=== PATIENT | male | born 1970 | race Caucasian/White ===

== ENCOUNTER → 2016-12-13 | Outpatient (CLI) | payer BC ==
[~2016-12-13] MED LIST: ATOR-24 PO; DICL-201 PO; DICL1GEL12; ESCI1TAB10 PO; TRAZ100T29 PO; ZOLP10TA PO
--- NOTE | 2016-12-13 15:23 | DIAGNOSTIC IMAGING REPORT ---
CERVICAL SPINE MRI HISTORY: Neck pain. HERNIATED NUCLEOUS PULPOSUS W/MYLOPATHY TECHNIQUE: Multiplanar multisequence MRI of the cervical spine was performed without the use of contrast. COMPARISON STUDY: Cervical spine MRI 12/31/2015. FINDINGS: Straightening of the cervical spine. Alignment remains intact. No fracture or subluxation. The visualized posterior fossa is unremarkable. Prevertebral soft tissues and the C1-C2 interval remains intact. Mild disc space narrowing and disc desiccation throughout the cervical spine. C2-C3: No significant central canal or neural foraminal narrowing. C3-C4: Large left sided disc osteophyte complex which abuts and deforms the left anterior cord. This remains unchanged. There are severe left-sided neural foraminal narrowing, unchanged. There is also a small broad-based posterior disc bulge, unchanged. C4-C5: No significant central canal or neural foraminal narrowing. C5-C6: Broad-based posterior disc protrusion which abuts and deforms the anterior cord. This remains unchanged compared to the prior study. Moderate right and mild left neural foraminal narrowing, unchanged. The thecal sac measures approximately 7 mm in AP diameter. C6-C7: There is a focal central disc protrusion which abuts and deforms the anterior cord. This is also similar to the prior study. Mild bilateral neural foraminal narrowing, unchanged. The thecal sac continues to measure 7 mm in AP diameter. C7-T1: No significant central canal or neural foraminal narrowing. IMPRESSION: 1. Overall, no significant change compared to the 2016 examination. 2. Disc protrusions at C3-C4, C5-C6, and C6-C7 with associated cord deformity as described above. Electronically signed by: Ronni Bae M.D. 12/13/2016 3:22 PM Dictated Date/Time: 12/13/2016 3:13 PM
== END | disposition home or self-care (01) ==
LOC: C.OPENMRI 14:11
PROVIDERS: ATTEND Orthopaedic Surgery Orthopaedic Surgery of the Spine
DX: M50.01 Cervical disc disorder with myelopathy, high cervical region (principal); M50.022 Cervical disc disorder at C5-C6 level with myelopathy; M50.023 Cervical disc disorder at C6-C7 level with myelopathy

== ENCOUNTER → 2017-03-15 | Outpatient (CLI) | payer BC ==
[2017-03-15 13:39] LABS: ALT/SGPT 39 U/L (12-78); AST/SGOT 17 U/L (15-37); BLOOD UREA NITROGEN 10 mg/dl (7-18); BUN/CREATININE RATIO 10.6 (10-20); CALCIUM 8.4 mg/dl (8.5-10.1); CARBON DIOXIDE 32 mmol/L (21-32); CHLORIDE 106 mmol/L (98-107); CREATININE 0.91 mg/dl (0.60-1.40); GLUCOSE 83 mg/dl (70-99); POTASSIUM 4.2 mmol/L (3.5-5.1); SODIUM 143 mmol/L (136-145)
[2017-03-15 13:44] LABS: ALB/GLOB RATIO 1.2 (0.9-2); ALKALINE PHOSPHATASE 62 U/L (45-117); CHOLESTEROL 266 mg/dl (0-200); CHOLESTEROL/HDL RATIO 6.7; HDL CHOLESTEROL 40 mg/dl; LDL CHOLESTEROL CALCULATED 195 mg/dl; TRIGLYCERIDES 156 mg/dl (0-150); VERY LOW DENSITY LIPOPROT CALC 31 mg/dl
--- NOTE | 2017-03-22 12:21 | CODING QUERY MEDICAL NECESSITY ---
SUPPORTING DIAGNOSIS NEEDED A supporting diagnosis is required for the test/procedure performed on this patient in order for us to be reimbursed by the patient's insurance. Please provide a supporting diagnosis for the following test/procedure listed below next to the test name along with your signature. *If there is no additional diagnosis for this patient that would support the following test/procedure please document that below next to the test/procedure. Test(s)/Procedure(s) that require a supporting diagnosis: * PSA DIAGNOSIS: Provider Signature: Date: Thank you Reyna Ortiz [employer] Information Management Once completed, please kindly fax back to [phone] For questions please call [phone]
== END | disposition home or self-care (01) ==
LOC: C.LAB 11:32
PROVIDERS: ATTEND Neuromusculoskeletal Medicine & OMM
DX: Z00.00 Encounter for general adult medical examination without abnormal findings (principal); E78.00 Pure hypercholesterolemia, unspecified; Z12.5 Encounter for screening for malignant neoplasm of prostate

== ENCOUNTER → 2017-03-24 | Outpatient (CLI) | payer BC ==
--- NOTE | 2017-03-24 12:35 | DIAGNOSTIC IMAGING REPORT ---
LUMBAR SPINE 5 VIEWS HISTORY: Pain SACROILIITIS COMPARISON: None. FINDINGS: There is no fracture. No subluxation. Moderate degenerative disc change throughout the entire lumbar region. Sacroiliac joints appear unremarkable. Findings of posterior laminectomy and fusion from L3 through L5. IMPRESSION: Moderate degenerative and postoperative change as described. No acute process. Electronically signed by: Michael Lebron M.D. 03/24/2017 12:34 PM Dictated Date/Time: 03/24/2017 12:32 PM
== END | disposition home or self-care (01) ==
LOC: C.RADPV 11:55
PROVIDERS: ATTEND Family Medicine
DX: M46.1 Sacroiliitis, not elsewhere classified (principal)

== ENCOUNTER → 2017-04-18 | Outpatient (CLI) | payer BC ==
--- NOTE | 2017-04-18 10:18 | DIAGNOSTIC IMAGING REPORT ---
MRI OF THE LUMBAR SPINE WITHOUT CONTRAST CLINICAL HISTORY: Lumbar back pain with left-sided radiculopathy. COMPARISON STUDY: Lumbar spine radiographs March 24, 2017. TECHNIQUE: Utilizing a 0.7 [place] open magnet and dedicated coil, multiplanar, multiecho imaging of the lumbar spine was performed without IV contrast. FINDINGS: For purposes of numbering on this exam, the L5-S1 disc space is assigned to axial image 23 of 25. Alignment of the lumbar spine is anatomic. Vertebral body heights are maintained. There is no suspicious marrow replacement. A T1 and T2 hypointense focus within the inferior aspect of the L4 vertebral body is likely benign. There are post surgical findings consistent with an L3 and L4 laminectomy. Postoperative appearance is within normal limits. Paravertebral soft tissues are unremarkable. L1-2: The central canal and neural foramen are patent. L2-3: There is disc bulge with ligamentous hypertrophy and facet arthrosis. There is mild narrowing of the central canal, lateral recesses and left neural foramen. L3-4: There is no residual central canal stenosis. The neural foramen are patent. There is minimal disc bulge. L4-5: There is minimal disc bulge. There is a tiny central disc protrusion. There is no residual central canal stenosis. There is mild narrowing of both neural foramen. L5-S1: There is disc bulge with a small superimposed central disc protrusion. There is facet arthrosis. There is mild narrowing of the central canal, lateral recesses as well as moderate narrowing of both neural foramen. IMPRESSION: 1. Status post L3-L4 laminectomy. 2. Mild central canal stenosis at L2-L3 and L5-S1, as described above. 3. Moderate bilateral neural foraminal stenosis at L5-S1. Electronically signed by: Bari Long M.D. 04/18/2017 10:16 AM Dictated Date/Time: 04/18/2017 10:06 AM
== END | disposition home or self-care (01) ==
LOC: C.OPENMRI 08:52
PROVIDERS: ATTEND Neuromusculoskeletal Medicine & OMM
DX: M48.07 Spinal stenosis, lumbosacral region (principal); M54.16 Radiculopathy, lumbar region

== ENCOUNTER → 2017-07-02 | Outpatient (CLI) | payer BC ==
[2017-07-02 11:26] LABS: URINE APPEARANCE CLEAR (CLEAR); URINE BILIRUBIN NEG (NEG); URINE COLOR YELLOW; URINE EPITHELIAL CELL AUTO 0-5 /lpf (0-5); URINE NITRITE NEG (NEG); URINE SPECIFIC GRAVITY 1.013 (1.000-1.030); UROBILINOGEN NEG (NEG); ZZUR CULT IF INDIC CLEAN CATCH NO
[2017-07-02 11:28] LABS: MANUAL MICROSCOPIC REQUIRED? NO; REVIEW REQ? NO
== END | disposition home or self-care (01) ==
LOC: C.LAB 10:18
PROVIDERS: ATTEND Neuromusculoskeletal Medicine & OMM
DX: N41.0 Acute prostatitis (principal); R30.0 Dysuria

== ENCOUNTER 2019-09-21 06:09 | Observation (INO) ==
--- NOTE | 2019-09-05 12:10 | PAT Medication Instructions ---
Medication Instructions Date of Service September 05, 2019 Home Medications gabapentin 300 mg capsule 300 mg PO TID methocarbamol 750 mg tablet 750 mg PO Q8H PRN ibuprofen [Advil] 600 mg PO Q6H PRN psyllium husk [Metamucil] 2 tbsp PO QPM simvastatin 20 mg PO HS venlafaxine 150 mg PO QAM zolpidem 10 mg PO HS PRN ASK your surgeon for instructions ibuprofen [Advil] 600 mg PO Q6H PRN DO NOT take the morning of surgery methocarbamol 750 mg tablet 750 mg PO Q8H PRN Take morning of surgery With a small sip of water, OTHERWISE NOTHING TO EAT OR DRINK AFTER MIDNIGHT: gabapentin 300 mg capsule 300 mg PO TID venlafaxine 150 mg PO QAM Take evening before surgery gabapentin 300 mg capsule 300 mg PO TID methocarbamol 750 mg tablet 750 mg PO Q8H PRN (if needed) simvastatin 20 mg PO HS zolpidem 10 mg PO HS PRN (if needed) Other Notes If you have any questions please call us at [phone] or [phone] or [phone] or [phone]
--- NOTE | 2019-09-10 15:36 | PAT Medication Instructions ---
Medication Instructions Date of Service September 10, 2019 Home Medications gabapentin 300 mg capsule 300 mg PO TID methocarbamol 750 mg tablet 750 mg PO Q8H PRN ibuprofen [Advil] 600 mg PO Q6H PRN psyllium husk [Metamucil] 2 tbsp PO QPM simvastatin 20 mg PO HS venlafaxine 150 mg PO QAM zolpidem 10 mg PO HS PRN ASK your surgeon for instructions ibuprofen [Advil] 600 mg PO Q6H PRN DO NOT take the morning of surgery methocarbamol 750 mg tablet 750 mg PO Q8H PRN Take morning of surgery With a small sip of water, OTHERWISE NOTHING TO EAT OR DRINK AFTER MIDNIGHT: gabapentin 300 mg capsule 300 mg PO TID venlafaxine 150 mg PO QAM Take evening before surgery gabapentin 300 mg capsule 300 mg PO TID methocarbamol 750 mg tablet 750 mg PO Q8H PRN (if needed) psyllium husk [Metamucil] 2 tbsp PO QPM simvastatin 20 mg PO HS zolpidem 10 mg PO HS PRN (if needed) Other Notes If you have any questions please call us at [phone] or [phone] or [phone] or [phone]
--- NOTE | 2019-09-11 14:59 | Anesthesiology Consultation ---
Date of Service September 11, 2019 Assessment & Plan (1) Encounter for pre-operative examination: Chart Review Chart Review: Acceptable Risk for Surgery and Patient seen in Pre Admission Testing Teaching & Discussion Instructed NPO after midnight before surgery, except medications with 15 cc of water. Medication instructions provided according to the PAT guidelines. History Surgery Operation Date: 09/21/19 07:45 Proposed Procedures p C5-C6, C6-C7 Anterior Cervical Discectomy Fusion, Spinal Cord Monitoring - Thomas Hickman DO Height/Weight Height: 6 ft Weight: 136.9 kg Allergies Allergy/AdvReac Type Severity Reaction Status Date / Time ciprofloxacin Allergy Muscle Pain Unverified 08/31/19 10:18 Medications Home Medications Medication Instructions Recorded Confirmed Last Taken gabapentin 300 mg capsule 300 mg PO TID cap 08/21/19 08/31/19 Unknown methocarbamol 750 mg tablet 750 mg PO Q8H PRN 08/21/19 08/31/19 Unknown ibuprofen [Advil] 600 mg PO Q6H PRN 08/31/19 08/31/19 Unknown psyllium husk [Metamucil] 2 tbsp PO QPM 08/31/19 08/31/19 Unknown simvastatin 20 mg PO HS 08/31/19 08/31/19 Unknown venlafaxine 150 mg PO QAM 08/31/19 08/31/19 Unknown zolpidem 10 mg tablet 10 mg PO HS PRN #30 tab 09/11/19 Unknown Past Medical History Medical History Degenerative cervical disc + cervicalgia/neuropathy Generalized anxiety disorder Heartburn Herniated intervertebral disc History of prostatitis Hyperlipidemia IBS (irritable bowel syndrome) Insomnia Lumbar back pain with radiculopathy affecting left lower extremity Morbid obesity Osteoarthritis Snores Spinal stenosis Teeth grinding Exercise / Class Metabolic Activity 1 > 8 Run/Swim/Ski/Tennis (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, 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, denies chest pain/SOB) Past Family History Family History Sister Diabetes Mother Diabetes Hypertension Grandfather Diabetes Past Surgical History Surgical History History of lumbar laminectomy History of tonsillectomy History of wisdom tooth extraction Past Anesthesia History No Hx of Anesthesia Complications History of PONV No Hx of Motion Sickness and History of PONV (with lumbar laminectomy) STOP BANG Total 4 Social History Smoking Status: Never smoker tobacco type: smokeless tobacco Do You Dip or Chew Tobacco: Yes (occasional (mostly when hunting)) Hx Alcohol Use: No Hx Substance Use: No substance use type: does not use Review of Systems Pt denies any recent chest pain, shortness of breath, palpitations, cough, fever or URI. +mild post nasal drip Physical Exam Vital Signs BP: 123/85 P: 83bpm SPO2: 96% RA T: 98.2 F R: 18 Constitutional + obese ENMT Mouth: + dental restorations (several crowns, 6 total, molars and top front) and + small oral opening; no chipped teeth and no loose teeth Thyromental Distance: < 3.5 Finger Breadths (3) Mallampati Class: III Neck normal visual inspection and + facial hair (short goatee); neck extension not limited Respiratory normal respiratory effort Auscultation: lungs clear to auscultation bilaterally Cardiovascular Rate/Rhythm: regular rate and regular rhythm Heart Sounds: no murmur Vessels: no carotid bruit Testing Laboratory Results 09/11/19 15:10 09/11/19 15:10 PT 9.9 Seconds (9.0-12.0) 09/11/19 15:10 INR 1.0 (0.9-1.1) 09/11/19 15:10 APTT 28.3 Seconds (21.0-31.0) 09/11/19 15:10 Urine Color Yellow 09/11/19 15:10 Urine Appearance Clear (Clear) 09/11/19 15:10 Urine pH 5.5 (4.5-7.5) 09/11/19 15:10 Ur Specific [place] 1.012 (1.000-1.030) 09/11/19 15:10 Urine Protein Negative (Negative) 09/11/19 15:10 Urine Glucose (UA) Negative (Negative) 09/11/19 15:10 Urine Ketones Negative (Negative) 09/11/19 15:10 Urine Nitrite Negative (Negative) 09/11/19 15:10 Ur Leukocyte Esterase Negative (Negative) 09/11/19 15:10 Blood Type O Positive 09/11/19 15:10 Antibody Screen NEGATIVE 09/11/19 15:10 Electrocardiogram Date: 09/11/19 Findings: + NSR @ (70) Chest X-Ray Date: 09/11/19 Findings: + NAD
--- NOTE | 2019-09-11 15:35 | XRay Report ---
XR chest Pre-admission PA/Lat CLINICAL HISTORY: pat preoperative evaluation COMPARISON STUDY: 02/08/2016 FINDINGS: The bones soft tissues and hemidiaphragms are normal. The cardiomediastinal silhouette is n ormal. The lungs are clear. The pulmonary vasculature is normal. IMPRESSION: Negative chest. The above report was generated using voice recognition software. It may contain grammatical, syntax or spelling errors. Electronically signed by: Michael Lebron M.D. 09/11/2019 3:33 PM
[2019-09-11 16:42] LABS: Basophils # (auto) 0.02 K/uL (0-0.2); Basophils % (auto) 0.3 %; Eosinophils # (auto) 0.03 K/uL (0-0.5); Eosinophils % (auto) 0.5 %; Hematocrit (blood only) 41.7 % (42-52); Hemoglobin 14.2 g/dL (14.0-18.0); Immature Granulocytes # (auto) 0.04 K/uL (0.00-0.02); Immature Granulocytes % (auto) 0.7 %; Lymphocytes # (auto) 1.52 K/uL (1.2-3.4); Lymphocytes % (auto) 25.2 %; Mean Corpuscular Hemoglobin 32.2 pg (25-34); Mean Corpuscular Hgb Conc 34.1 g/dL (32-36); Mean Corpuscular Volume 94.6 fL (80-100); Mean Platelet Volume 11.3 fL (7.4-10.4); Monocytes # (auto) 0.67 K/uL (0.11-0.59); Monocytes % (auto) 11.1 %; Neutrophils # (auto) 3.74 K/uL (1.4-6.5); Neutrophils % (auto) 62.2 %; Platelet Count 158 K/uL (130-400); RDW Coefficient of Variation 12.4 % (11.5-14.5); Red Blood Count 4.41 M/uL (4.7-6.1); White Blood Count 6.02 K/uL (4.8-10.8)
[2019-09-11 16:45] LABS: Appearance Urine Clear (Clear); Bilirubin Urine Negative (Negative); Blood Urine Negative (Negative); Color Urine Yellow; Glucose Urine UA Negative (Negative); Ketones Urine Negative (Negative); Leukocyte Esterase Urine Negative (Negative); Nitrite Urine Negative (Negative); Protein Urine Negative (Negative); Specific Gravity Urine 1.012 (1.000-1.030); Urobilinogen Urine Negative (Negative); pH Urine 5.5 (4.5-7.5)
[2019-09-11 16:50] LABS: BUN Creatinine Ratio 11.5 (10-20); Calcium 8.9 mg/dl (8.5-10.1); Creatinine Clr Calc Pharmacy 145.5 ml/min; Est GFR (African American) 117.2; Est GFR (Non-African American) 101.1; Potassium 4.3 mmol/L (3.5-5.1)
[2019-09-11 17:07] LABS: Partial Thromboplastin Time 28.3 Seconds (21.0-31.0); Prothrombin Time 9.9 Seconds (9.0-12.0)
[~2019-09-21 06:09] MED LIST changes: +ACETAMINOPHEN 500 MG TAB PO SCH; -ATOR-24 PO; +CEFAZOLIN 3000MG 72.5 ML IV SCH; +CeleBREX 200 MG CAP PO SCH; -DICL-201 PO; -DICL1GEL12; -ESCI1TAB10 PO; +GABAPENTIN 900 MG DOSE PO SCH; +LR 15ML/HR IV SCH; -TRAZ100T29 PO; -ZOLP10TA PO; +dexAMETHasone 4 MG TAB PO SCH
[2019-09-21] MEDS ORDERED: HYDROmorphone INJ 2 MG/ML SYR/VIAL ONE ×2 (06:24→07:01)
[2019-09-21] MEDS ORDERED: MIDAZOLAM HCL 1 MG/ML 2ML VIAL ONE (06:24)
[2019-09-21] MEDS ORDERED: fentaNYL citrate 100 MCG/2 ML VIAL ONE ×7 (06:24→10:12)
[2019-09-21] MEDS ORDERED: PROPOFOL IV EMULSION 10 MG/ML 100 ML VIAL IV ONE ×2 (07:02→10:05)
[2019-09-21] MEDS ORDERED: BACITRACIN INJ 50,000 UNIT VIAL ONE (07:07)
[2019-09-21] MEDS ORDERED: SUCCINYLCHOLINE CHLORIDE 20 MG/ML 10 ML VIAL ONE (07:14)
[2019-09-21] MEDS ORDERED: GLYCOPYRROLATE 0.2 MG/ML VIAL ONE (07:14)
[2019-09-21] MEDS ORDERED: ONDANSETRON INJ 2 MG/ML 2 ML VIAL ONE (07:14)
[2019-09-21] MEDS ORDERED: NEOSTIGMINE METHYLSULFATE 1 MG/ML 10ML VIAL ONE (07:14)
[2019-09-21] MEDS ORDERED: LIDOCAINE HCL 2% 2 ML VIAL/AMP(20MG/ML) INFIL ONE (07:14)
[2019-09-21] MEDS ORDERED: DEXAMETHASONE SOD INJ 4 MG/ML VIAL ONE (07:14)
[2019-09-21] MEDS ORDERED: ROCURONIUM BROMIDE 10 MG/ML 5 ML VIAL ONE (07:14)
[2019-09-21] MEDS ORDERED: PROPOFOL IV EMULSION 10 MG/ML 20 ML VIAL IV ONE (07:14)
--- NOTE | 2019-09-21 07:33 | History & Physical Bridge Note ---
Date of Service September 21, 2019 History & Physical Bridge Note I have examined the patient, reviewed the History & Physical and in the interval since the performance of the History & Physical I have noted the following changes of clinical significance: no changes noted
--- NOTE | 2019-09-21 07:33 | History & Physical Report ---
Date of Service September 21, 2019 Assessment & Plan (1) Cervical radiculopathy: Anterior cervical discectomy and fusion C5-6 C6-7 Present on Admission?: Yes History of Present Illness Chief Complaint: Neck and arm pain Primary Care Provider: Guillermo Turner DO This is a 49-year-old male who presents with chronic persistent neck and arm pain. Failed extensive course of nonoperative care is here for surgical invention. Allergies Allergy/AdvReac Type Severity Reaction Status Date / Time ciprofloxacin Allergy Muscle Pain Unverified 09/21/19 06:53 Home Medications Home Medications Medication Instructions Recorded Confirmed Type gabapentin 300 mg capsule 300 mg PO TID cap 08/21/19 09/21/19 History methocarbamol 750 mg tablet 750 mg PO Q8H PRN 08/21/19 09/21/19 History ibuprofen [Advil] 600 mg PO Q6H PRN 08/31/19 09/21/19 History psyllium husk [Metamucil] 2 tbsp PO QPM 08/31/19 09/21/19 History venlafaxine [Effexor XR] 150 mg PO QAM 08/31/19 09/21/19 History simvastatin 20 mg tablet 20 mg PO HS #90 tab 09/13/19 09/21/19 Rx zolpidem [Ambien] 10 mg PO HS PRN 09/21/19 09/21/19 History Past Med/Surg History Medical History Degenerative cervical disc + cervicalgia/neuropathy Generalized anxiety disorder Heartburn Herniated intervertebral disc History of prostatitis Hyperlipidemia IBS (irritable bowel syndrome) Insomnia Lumbar back pain with radiculopathy affecting left lower extremity Morbid obesity Osteoarthritis Snores Spinal stenosis Teeth grinding Surgical History History of lumbar laminectomy History of tonsillectomy History of wisdom tooth extraction Family History Sister Diabetes Mother Diabetes Hypertension Grandfather Diabetes Social History Preferred Language: Indonesian Communication Ability: Effective Visual Impairment: No Limitations Hearing Ability: Normal Web Editor Required: No Beliefs That Will Affect Care: None marital status: Current Living Situation: Spouse current occupational status: employed 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 Results & Data Vital Signs (Past 12 Hours) Vital Signs Temp Pulse Resp BP Pulse Ox 09/21/19 06:57 36.9 C 80 18 120/80 95
[2019-09-21] MEDS ORDERED: FLOSEAL HEMOSTATIC MATRIX 10ML TOP ONE (09:22)
--- NOTE | 2019-09-21 09:33 | Operative Report ---
Post Operative Report Pre & Post Diagnosis Operation Date: 09/21/19 07:45 Pre-Op Diagnosis: Cervical Radiculopathy Post-Op Diagnosis: Cervical Radiculopathy I identified the patient and participated in the time-out.: Yes Procedure Operation Date: 09/21/19 07:45 Actual Procedures #1 anterior cervical discectomy with bilateral foraminotomies C5-6 C6-7. #2 anterior cervical arthrodesis C5-6 C6-7. #3 placement of Spira titanium cage 9 mm in height at C5-6 and 10 mm at C6-7. This was filled with DBM bone graft. #4 application of ortiz plate and screws across C5-C7. Surgeon Thomas Hickman, DO Professor Of Theatre Zulay Garcia Estimated Blood Loss 15 Findings See Below Patient is 6 foot tall weighing over 135 kg with a BMI in excess of 40. The patient's body habitus did add significant technical difficulty adding at least 25% increase in operative time. Specimens None Indications This is a 49-year-old male known to me that presents above-mentioned diagnosis after failing since course of nonoperative care is here for surgical invention. Description of Procedure Patient was met with identified informed consent obtained. Patient was then taken to the operative suite underwent intubation placed in the supine position Sebas table the head Gross head start coordinator. All bony prominences well-padded eyes inspected to ensure no external pressure placed upon the peer at this point the anterior cervical spine was prepped and draped in a sterile fashion. The assistance of fluoroscopy identified the see 6 vertebral body and a transverse incision was placed along the right anterior aspect of the cervical spinal sinus region. Sharp dissection with the assistance of bipolar cautery was performed down to and exposing anterior cervical spine from C5-C7. Self-retaining retractors placed. Then performed a complete discectomy of C5-6 out to the unco vertebral joints bilaterally. Barnum distracting pins were lysed assist in visualization. Removed all posterior annular fibers longitudinal ligament bilateral foraminotomies performed. Endplates were then burred to subcortical being bone and a 9 mm Spira cage filled with DBM bone graft tapped in position. Then proceeded to C6-7. Again complete discectomy performed Barnum distracting pins utilized. Removed all posterior annular fibers longitudinal ligament and bilateral foraminotomies performed. Endplates were then burred to subcortical bleeding bone and a 10 mm Spira cage filled with DBM tapped in position. Distraction apparatus was removed on top all anterior osteophytes burred to a smooth cortical surface and a ortiz plate and screws applied with the assistance of fluoroscopy. Incision was then copiously irrigated explored to ensure no damage to surrounding structures remaining bleeding. A 10 round ANNY drain inserted. Incision was then closed with 2 Vicryl in the fascia and 4 Monocryl for final skin closure. Steri-Strips dressings placed. Patient will continue PACU stable disc. Please note Crispin Leblanc was present at the entire procedure involved the patient positioning complex portions of the surgery and final skin closure. Lastly spinal cord monitoring was utilized that the procedure no changes noted. I attest to the content of the Intraoperative Record and any orders documented therein. Any exceptions are noted below.
--- NOTE | 2019-09-21 09:55 | Fluoroscopy Report ---
FL cervical 2-3V CLINICAL HISTORY: ACDF C5-C7 COMPARISON STUDY: None FLUOROSCOPY TIME: 19 seconds. NUMBER OF FLUOROSCOPIC IMAGES: 4 FINDINGS: Fluoroscopic spot images reveal postsurgical changes of anterior discectomies and fusion at the C5-6 and C6-7 levels. IMPRESSION: Intraoperative fluoroscopic spot images demonstrating anterior cervical discectomy and f usion at the C5-C7 levels. Electronically signed by: Elier Patel M.D. 09/21/2019 9:53 AM
[2019-09-21] MEDS ORDERED: HYDROmorphone INJ 0.5 MG/0.5 ML SYR IV PRN ×2 (10:19→11:27)
[2019-09-21] MEDS: fentaNYL citrate 100 MCG/2 ML VIAL IV PRN ×2 (10:20→10:25)
[2019-09-21] MEDS ORDERED: ePHEDrine sulfate 50 MG/ML AMP IV PRN (10:37)
[2019-09-21] MEDS ORDERED: ATROPINE SULFATE 0.1 MG/ML 10ML SYR IV PRN (10:37)
--- NOTE | 2019-09-21 10:40 | Anesthesiology Progress Note ---
Date of Service September 21, 2019 Anesthesia Post Procedure Vital Signs Vital Signs: Temp Pulse Pulse Resp BP Pulse Ox 09/21/19 09:47 35.8 C L 77 14 93/48 L 96 09/21/19 06:57 36.9 C 80 18 120/80 95 Pain Intensity Right Hip: Pain Intensity: 5 Anterior Neck: Pain Intensity: 7 Transfer of Care Handoff Completed per policy Notes Mental Status: alert / awake / arousable and participated in evaluation Patient Amnestic to Procedure: Yes Nausea / Vomiting: adequately controlled Pain: adequately controlled Airway Patency, RR, SpO2: stable & adequate BP & HR: stable & adequate Hydration State: stable & adequate Anesthetic Complications: no major complications apparent
[2019-09-21] MEDS ORDERED: SOD PHOSPHATE/SOD BIPHOSPHATE ENEMA 132 ML BTL PR PRN (11:27)
[2019-09-21] MEDS ORDERED: HYDROmorphone INJ 1 MG/ML SYRINGE IV PRN (11:27)
[2019-09-21] MEDS ORDERED: LORazepam 0.5 MG TAB PO PRN (11:27)
[2019-09-21] MEDS ORDERED: NALOXONE HCL 0.4 MG/1 ML VIAL/CARP IV PRN (11:27)
[2019-09-21] MEDS ORDERED: ZOLPIDEM TARTRATE 10 MG TAB PO PRN (11:27)
[2019-09-21] MEDS ORDERED: FAMOTIDINE 20 MG TAB PO PRN (11:27)
[2019-09-21] MEDS ORDERED: ACETAMINOPHEN 500 MG TAB PO PRN (11:27)
[2019-09-21] MEDS ORDERED: ALUMINUM/MAGNESIUM SUSP 30 ML UDC PO PRN (11:27)
[2019-09-21] MEDS ORDERED: RACEPINEPHRINE 2.25% NEBU SOLN 0.5 ML VIAL INH PRN (11:27)
[2019-09-21] MEDS ORDERED: PROMETHAZINE HCL 12.5 MG in SODIUM CHLORIDE 0.9% 50 ML IV PRN (11:27)
[2019-09-21] MEDS ORDERED: ACETAMINOPHEN 1,000 MG/100 ML VIAL IV PRN (11:27)
[2019-09-21] MEDS ORDERED: ONDANSETRON 4 MG OD TAB PO PRN (11:27)
[2019-09-21] MEDS ORDERED: MAGNESIUM HYDROXIDE SUSP 30 ML UDC PO PRN (11:27)
[2019-09-21] MEDS ORDERED: DO NOT ADMINISTER PNEUMOCOCCAL VACCINE PRN (11:27)
[2019-09-21] MEDS ORDERED: DEXAMETHASONE SOD PHOSPHATE 8 MG in SYRINGE 0 ML IV PRN (11:27)
[2019-09-21] MEDS ORDERED: TRAMADOL HCL 50 MG TABLET PO PRN (11:27)
[2019-09-21] MEDS ORDERED: DO NOT ADMINISTER FLU VACCINE PRN (11:27)
[2019-09-21] MEDS ORDERED: METOCLOPRAMIDE HCL INJ 5 MG/ML 2 ML VIAL IV PRN (11:27)
[2019-09-21] MEDS ORDERED: ONDANSETRON INJ 2 MG/ML 2 ML VIAL IV PRN (11:27)
[2019-09-21] MEDS ORDERED: LORazepam 0.5 MG/1 ML VIAL IV PRN (11:27)
[2019-09-21] MEDS: OXYCODONE HCL IR 5 MG TAB (IMMEDIATE RELEASE) PO PRN ×3 (12:34→22:20)
[2019-09-21] MEDS: LACTATED RINGER'S 1,000 ML IV SCH ×2 (12:37→19:07)
[2019-09-21] MEDS: GABAPENTIN 300 MG CAP PO SCH ×2 (13:47→20:52)
[2019-09-21] MEDS: CEFAZOLIN 2000MG 2,000 MG/15 ML SYR IV SCH (16:31)
[2019-09-21] MEDS ORDERED: DOCUSATE SODIUM/SENNA 50/8.6MG TAB PO SCH (21:00)
[2019-09-21] MEDS ORDERED: SIMVASTATIN 20 MG TAB PO SCH (21:00)
[2019-09-22] MEDS: CEFAZOLIN 2000MG 2,000 MG/15 ML SYR IV SCH (00:22)
[2019-09-22] MEDS: OXYCODONE HCL IR 5 MG TAB (IMMEDIATE RELEASE) PO PRN ×2 (06:29→10:22)
[2019-09-22] MEDS: GABAPENTIN 300 MG CAP PO SCH (08:38)
[2019-09-22] MEDS ORDERED: VENLAFAXINE HCL XR 150 MG CAPXR PO SCH (09:00)
[2019-09-22] MEDS ORDERED: POLYETHYLENE (MIRALAX) 17 GM PACK PO SCH (09:34)
--- NOTE | 2019-09-22 10:42 | Discharge Summary ---
Date of Service September 22, 2019 Admission HPI Per Admitting Provider This is a 49-year-old male who presents with chronic persistent neck and arm pain. Failed extensive course of nonoperative care is here for surgical invention. Principal Diagnosis Cervical spinal stenosis with radiculopathy Discharge Data Allergies Allergy/AdvReac Type Severity Reaction Status Date / Time ciprofloxacin Allergy Muscle Pain Unverified 09/21/19 06:53 Procedures Performed Operation Date: 09/21/19 07:45 Actual Procedures p C5-C6, C6-C7 Anterior Cervical Discectomy and Fusion with Spinal Cord Monitoring(Not Applicable) - Thomas Hickman DO Ordered Studies 09/21/19 07:45 FL cervical 2-3V Routine FL fluoroscopy <1hr Routine Hospital Course (1) Cervical radiculopathy: Patient underwent anterior cervical discectomy and fusion tolerated this well was taken to the orthopedic floor postoperative. Postop day #1 he is swallowing well no hoarseness. Arm symptoms improved. Pain well controlled. He had excellent strength testing. Subsequently discharged home. Discharge orders and instructions found in the chart for further review. Total Time Total Time Spent Total Time Spent (In Minutes): 20 minutes Discharge Plan Discharge Items Patient Disposition: Home - Self-Care Reason For Visit: Spinal Stenosis, Cervical Region Discharge Diagnosis: Cervical spinal stenosis with radiculopathy Activity: Per Instructions section Non-emergency contact: Primary Care Provider Call non-emergency contact if: you have any medication questions Follow-up/Referrals: Guillermo Turner DO [Primary Care Provider] - Diet: Regular Addtl Attending Provider Instructions: ACTIVITY RECOMMENDATIONS: SELF CARE INSTRUCTIONS AFTER CERVICAL FUSIONS 1. No smoking. Smoking drastically decreases the chance of a solid fusion. 2. No bending, lifting more than 5 pounds, or twisting (roll like a log when turning in bed). 3. You may shower 3 days after surgery. Thoroughly dry wound. Do not soak in the tub. 4. Cervical collar: Must be worn at all times including sleeping. You may remove the brace only to bath, eat and if you are sitting in a recliner. 5. Please walk as much as you can for exercise. Gradually increase the distance that you walk as your endurance increases. SPECIAL CARE INSTRUCTIONS: VERY IMPORTANT TO READ AND REVIEW A. Do not take any anti-inflammatory medications (i.e. Indocin, Advil, Aspirin, Naprosyn, Aleve, Motrin, etc.) as these may inhibit the chance of a solid fusion. Tylenol is okay to take. B. Your surgical incision has been closed with a cosmetic suture under the skin that will dissolve in about 6 weeks. In 14 days, you can use a pair of clean scissors and cut the suture that is left outside of the skin at the ends of your incision. C. Complications are uncommon, but please contact us if you have any signs or symptoms of: 1. wound infection (fever higher than 102.5 degrees F, redness, separation of wound, drainage, or increasing pain from the incision) 2. blood clots in legs (pain, swelling, redness and warmth in legs) 3. urinary tract infection (fever higher than 102.5 degrees, burning upon urination or increased frequency of urination) 4. nerve problems (inability to walk on your toes or heels, numbness, loss of bowel or bladder control) 5. any other symptoms that concern you. D. Please call the office at if you have any concerns or questions about your operation or recovery. MANAGING PAIN AFTER SPINAL SURGERY 1. Narcotic medication is intended for short-term use and will be provided for surgical pain. Surgical pain usually lasts for a period of 4-6 weeks. Narcotic medication includes Percocet, Vicodin, Darvocet, Tylenol #3 or Lortab. 2. Longer-term pain is more appropriately treated with non-narcotic medication such as Tylenol ES. 3. Muscle spasm is not appropriately treated with narcotics. Muscle relaxers such as Soma, Flexeril or Skelaxin can be used along with Tylenol ES. 4. Remember that we all live with some "aches and pains". This is not unusual or uncommon after an injury or as we get older. 5. We will provide appropriate medication within the normal guidelines of their prescribed use. We will also be very cautious and aware of potential abuse and extended duration of patients' medication needs. 6. Please allow 2-3 days to process refills. Prescriptions will not be mailed but must be picked up at the office. FOLLOW UP VISIT: Keep your scheduled follow-up appointment. Any questions, please call the office at . Pending Studies at Discharge: No Stand-Alone Forms: [employer], Smoking Cessation Medications and DC Order Prescriptions: New tramadol 50 mg tablet 50 mg PO Q6H PRN (Reason: pain, moderate) Qty: 15 RF: 0 oxycodone 5 mg tablet 5 mg PO Q6H PRN (Reason: pain, severe) Qty: 15 RF: 0 Continued simvastatin 20 mg tablet 20 mg PO HS Qty: 90 RF: 1 gabapentin 300 mg capsule 300 mg PO TID RF: 0 methocarbamol [Robaxin-750] 750 mg tablet 750 mg PO Q8H PRN (Reason: muscle spasms) RF: 0 venlafaxine [Effexor XR] 150 mg capsule,extended release 24hr 150 mg PO QAM RF: 0 Metamucil 3.4 gram/5.4 gram Powder 2 tbsp PO QPM RF: 0 zolpidem [Ambien] 10 mg tablet 10 mg PO HS PRN (Reason: Insomnia) RF: 0 Discontinued ibuprofen [Advil] 200 mg Tablet 600 mg PO Q6H PRN (Reason: Pain) RF: 0 Discharge Orders: Discharge Order (Routine); Ordered 09/22/19 Ordered By: Thomas Hickman Admission Data Admit Date/Time: 09/21/19 09:48 Attending Provider: Thomas Hickman Admit Provider: Thomas Hickman Primary Care Provider: Guillermo Turner
[2019-09-23] MEDS ORDERED: bisacodyL 10 MG SUPP PR PRN (09:34)
== END 2019-09-22 11:47 | disposition home or self-care (01) ==
LOC: 3E 06:09 → ASU 06:09